=== PATIENT | female | born 2000 | race Two or more races ===

== ENCOUNTER 2021-07-28 08:23 | Emergency (ER) | payer SELFPAY ==
[~2021-07-28] VITALS: Ht 157.5 cm; Wt 87.2 kg
--- NOTE | 2021-07-28 09:34 | PHYS DOC ---
Past Medical History Past Medical History: No Pertinent History Past Surgical History: No Surgical History Smoking Status: Never Smoker Alcohol Use: None Drug Use: None General Adult EDM: Chief Complaint: ABDOMINAL PAIN HPI: HPI: Patient is a 21 year old female who present to ER for evaluation of abdominal p ain with nausea since yesterday. Patient said the pain is everywhere. Patient denies any cough or fever, no vaginal bleeding or discharge. Patient denies any urinary symptoms. Patient is on control medication, does not think that she is . Patient denies any chest pain, no trouble breathing. Patient described the pain as aching in nature, nothing make it worse or better. Patient never had this problem before Review of Systems: Review of Systems: Constitutional: Denies fever or chills. [] Eyes: Denies change in visual acuity. [] HENT: Denies nasal congestion or sore throat. [] Respiratory: Denies cough or shortness of breath. [] Cardiovascular: Denies chest pain or edema. [] GI: Positive for abdominal pain with nausea, no vomiting, no diarrhea : Denies dysuria. [] Musculoskeletal: Denies back pain or joint pain. [] Integument: Denies rash. [] Neurologic: Denies headache, focal weakness or sensory changes. [] Endocrine: Denies polyuria or polydipsia. [] Lymphatic: Denies swollen glands. [] Psychiatric: Denies depression or anxiety. [] Heart Score: C/O Chest Pain: N/A Risk Factors: Risk Factors: DM, Current or recent (<one month) smoker, HTN, HLP, family history of CAD, obesity. Risk Scores: Score 0 - 3: 2.5% MACE over next 6 weeks - Discharge Home Score 4 - 6: 20.3% MACE over next 6 weeks - Admit for Clinical Observation Score 7 - 10: 72.7% MACE over next 6 weeks - Early Invasive Strategies Allergies: Allergies: Allergies Coded Allergies Type Severity Reaction Last Updated Verified No Known Drug Allergies 10/18/14 No Physical Exam: PE: Constitutional: Well developed, well nourished, no acute distress, non-toxic appearance. [] HENT: Normocephalic, atraumatic, bilateral external ears normal, oropharynx moist, no oral exudates, nose normal. [] Eyes: PERRLA, EOMI, conjunctiva normal, no discharge. [] Neck: Normal range of motion, no tenderness, supple, no stridor. [] Cardiovascular:Heart rate regular rhythm, no murmur [] Lungs & Thorax: Bilateral breath sounds clear to auscultation [] Abdomen: Bowel sounds normal, soft, right side upper tender to palpation ,no masses, no pulsatile masses. There is no tenderness to palpation in suprapubic area or lower abdominal area. Skin: Warm, dry, no erythema, no rash. [] Back: No tenderness, no CVA tenderness. [] Extremities: No tenderness, no cyanosis, no clubbing, ROM intact, no edema. [] Neurologic: Alert and oriented X 3, normal motor function, normal sensory function, no focal deficits noted. [] Psychologic: Affect normal, judgement normal, mood normal. [] Current Patient Data: Labs: Laboratory Tests Test 07/28/21 09:14 07/28/21 09:16 07/28/21 09:21 White Blood Count 10.1 x10^3/uL Red Blood Count 4.54 x10^6/uL Hemoglobin 14.0 g/dL Hematocrit 41.2 % Mean Corpuscular Volume 91 fL Mean Corpuscular Hemoglobin 31 pg Mean Corpuscular Hemoglobin Concent 34 g/dL Red Cell Distribution Width 12.9 % Platelet Count 364 x10^3/uL Neutrophils (%) (Auto) 69 % Lymphocytes (%) (Auto) 24 % Monocytes (%) (Auto) 6 % Eosinophils (%) (Auto) 1 % Basophils (%) (Auto) 0 % Neutrophils # (Auto) 6.9 x10^3/uL Lymphocytes # (Auto) 2.4 x10^3/uL Monocytes # (Auto) 0.6 x10^3/uL Eosinophils # (Auto) 0.1 x10^3/uL Basophils # (Auto) 0.0 x10^3/uL Maternal Serum HCG Beta Subunit 64 mIU/mL Sodium Level 137 mmol/L Potassium Level 3.9 mmol/L Chloride Level 102 mmol/L Carbon Dioxide Level 25 mmol/L Anion Gap 10 Blood Urea Nitrogen 9 mg/dL Creatinine 0.7 mg/dL Estimated GFR (Cockcroft-Gault) 106.7 BUN/Creatinine Ratio 13 Glucose Level 107 mg/dL Calcium Level 8.7 mg/dL Total Bilirubin 0.4 mg/dL Aspartate Amino Transf (AST/SGOT) 13 U/L Alanine Aminotransferase (ALT/SGPT) 20 U/L Alkaline Phosphatase 103 U/L Total Protein 8.0 g/dL Albumin 3.9 g/dL Albumin/Globulin Ratio 1.0 Lipase 137 U/L Urine Collection Type Unknown Urine Color Yellow Urine Clarity Clear Urine pH 6.0 Urine Specific [place] 1.020 Urine Protein Negative mg/dL Urine Glucose (UA) Negative mg/dL Urine Ketones (Stick) Negative mg/dL Urine Blood Negative Urine Nitrite Negative Urine Bilirubin Negative Urine Urobilinogen Dipstick 0.2 mg/dL Urine Leukocyte Esterase Negative Urine RBC 0 /HPF Urine WBC 1-4 /HPF Urine Squamous Epithelial Cells Mod /LPF Urine Bacteria 0 /HPF Bedside Urine HCG, Qualitative Hcg positive Laboratory Tests Test 07/28/21 09:21 POC Urine HCG, Qualitative Hcg positive (Negative) EKG: EKG: [] Radiology/Procedures: Radiology/Procedures: [][facility] [address] [place] [address] IMAGING REPORT Signed PATIENT: EDUARDO TERAN AACCOUNT: [id number] : 2000 LOCATION: ER AGE: 21 SEX: F EXAM STATUS: REG ER ORD. PHYSICIAN: NEELAM TYLER DO REASON: , PELVIC PAIN, ABDOMINAL PAIN PROCEDURE: OB TRANSVAG EXAM: Abdomen sonogram; obstetrics sonogram. HISTORY: Pain. TECHNIQUE: Sonographic imaging of the abdomen and transabdominal and transvaginal sonographic imaging of a gravid uterus was performed. COMPARISON: None. FINDINGS: The liver is normal in size. There is hepatic steatosis. No focal hepatic lesion is seen. The gallbladder is unremarkable. The common bile duct is normal in caliber. The right kidney is unremarkable. The pancreas and aorta are obscured due to bowel gas. The inferior vena cava is patent. The uterus measures 7.3 x 5.0 x 3.5 cm. The uterus is retroverted. The endometrial stripe is thickened to 2.0 cm. No intrauterine gestational sac is seen. The ovaries are normal in size and demonstrate normal blood flow. There is a small amount of pelvic free fluid. There is a 1.8 cm right corpus luteum cyst. IMPRESSION: 1. No intrauterine gestational sac. Note is made that this is not expected at the reported beta-hCG level of 64. Correlation with serial beta hCG levels to c onfirm appropriate increase and short-term sonographic imaging is recommended to confirm viability and exclude a chemical or ectopic . 2. Hepatic steatosis. 3. Thickened endometrium and 2.0 cm right corpus luteum cyst. 4. Small amount of nonspecific pelvic free fluid. Electronically signed by: Xuan Iglesias MD (07/28/2021 10:40 AM) [id number] DICTATED and SIGNED BY: XUAN IGLESIAS MD DATE: 07/28/21 [id number] 0 Course & Med Decision Making: Course & Med Decision Making Pertinent Labs and Imaging studies reviewed. (See chart for details) Patient is a 21-year-old female who present to ER due to abdominal pain, examination showed that she is tender to palpation in the right upper quadrant, ultrasound of her abdomen showed fatty liver, no evidence of gallstones. Patient also found to be despite she is on control medication. Her hCG level is only 64. Pelvic ultrasound did not show any evidence of an IUP, no large amount of free fluid in the pelvic area. There is no tenderness to palpation in the pelvic area. However patient will need to follow-up with her doctor in 2 days, 48 hours to have her hCG level rechecked to make sure she does not have an ectopic . Patient is amenable to plan of care. Her pain might be from the fatty liver that found on ultrasound today. It is less likely that she has ectopic because she does not have any vaginal bleeding.. Dragon Disclaimer: Dragstevo Disclaimer: This electronic medical record was generated, in whole or in part, using a voice recognition dictation system. Departure Departure Impression: Primary Impression: Abdominal pain Additional Impression: Disposition: 01 HOME / SELF CARE / HOMELESS Condition: STABLE Referrals: UNKNOWN PCP NAME (PCP) NILAY LUCIO MD Please call this [employer] [facility] doctor for follow up in 48 hours, please have your HCG level rechecked in 48 hours. Patient Instructions: Abdominal Pain, Abdominal Pain During Additional Instructions: Thank you for visiting our Emergency Department. We appreciate you trusting us with your care. If any additional problems come up don't hesitate to return to visit us. Please follow up with your primary care provider so they can plan additional care if needed and know about the problem that you had. If symptoms worsen come back to the Emergency Department. Any concerning symptoms that start such as chest pain, shortness of air, weakness or numbness on one side of the body, running high fevers or any other concerning symptoms return to the ER. NEELAM TYLER DO Jul 28, 2021 09:34
[2021-07-28 09:47] LABS: BASO % 0 % (0-3); EOS # 0.1 x10^3/uL (0.0-0.7); EOS % 1 % (0-3); HEMATOCRIT 41.2 % (36.0-47.0); LYMPH # 2.4 x10^3/uL (1.0-4.8); LYMPH % 24 % (24-48); MEAN CORPUSCULAR HEMOGLOBIN 31 pg (25-35); MEAN CORPUSCULAR HGB CONC 34 g/dL (31-37); MEAN CORPUSCULAR VOLUME 91 fL (79-100); MONO # 0.6 x10^3/uL (0.0-1.1); MONO % 6 % (0-9); NEUT # 6.9 x10^3/uL (1.8-7.7); NEUT % 69 % (31-73); PLATELET COUNT 364 x10^3/uL (140-400); RED BLOOD COUNT 4.54 x10^6/uL (3.50-5.40); RED CELL DISTRIBUTION WIDTH 12.9 % (11.5-14.5); WHITE BLOOD COUNT 10.1 x10^3/uL (4.0-11.0)
[2021-07-28 09:57] LABS: CALCIUM 8.7 mg/dL (8.5-10.1); CREATININE 0.7 mg/dL (0.6-1.0); GFR 106.7; POTASSIUM 3.9 mmol/L (3.5-5.1)
[2021-07-28 10:04] LABS: ALBUMIN 3.9 g/dL (3.4-5.0); TOTAL BILIRUBIN 0.4 mg/dL (0.2-1.0)
[2021-07-28 10:06] LABS: BILIRUBIN,URINE NEGATIVE (NEG); CLARITY,URINE CLEAR; COLOR,URINE YELLOW; NITRITE,URINE NEGATIVE (NEG); PROTEIN,URINE NEGATIVE (NEG-TRACE); UROBILINOGEN,URINE 0.2 mg/dL (0.2 mg/dL)
--- NOTE | 2021-07-28 10:42 | RAD ---
EXAM: Abdomen sonogram; obstetrics sonogram. HISTORY: Pain. TECHNIQUE: Sonographic imaging of the abdomen and transabdominal and transvaginal sonographic imaging of a gravid uterus was performed. COMPARISON: None. FINDINGS: The liver is normal in size. There is hepatic steatosis. No focal hepatic lesion is seen. T he gallbladder is unremarkable. The common bile duct is normal in caliber. The right kidney is unrema rkable. The pancreas and aorta are obscured due to bowel gas. The inferior vena cava is patent. The uterus measures 7.3 x 5.0 x 3.5 cm. The uterus is retroverted. The endometrial stripe is thickene d to 2.0 cm. No intrauterine gestational sac is seen. The ovaries are normal in size and demonstrate normal blood flow. There is a small amount of pelvic free fluid. There is a 1.8 cm right corpus luteu m cyst. IMPRESSION: 1. No intrauterine gestational sac. Note is made that this is not expected at the reported beta-hCG l evel of 64. Correlation with serial beta hCG levels to confirm appropriate increase and short-term so nographic imaging is recommended to confirm viability and exclude a chemical or ectopic pre gnancy. 2. Hepatic steatosis. 3. Thickened endometrium and 2.0 cm right corpus luteum cyst. 4. Small amount of nonspecific pelvic free fluid. Electronically signed by: Xuan Almazan MD (07/28/2021 10:40 AM) [id number]
[2021-07-28 10:47] LABS: BACTERIA,URINE 0 /HPF (0-FEW); RBC,URINE 0 /HPF (0-2)
[2021-07-28 11:45] VITALS: BP 123/87
== END 2021-07-28 12:05 | disposition home or self-care (01) ==
LOC: ER 08:23
DX: O26.891 Other specified pregnancy related conditions, first trimester (principal); R10.11 Right upper quadrant pain; R11.0 Nausea; Z3A.00 Weeks of gestation of pregnancy not specified
CPT/HCPCS: 36415; 76705; 76817; 80053; 81001; 81025; 83690; 84702; 85025; 99285

== ENCOUNTER 2022-02-24 13:57 | Observation (INO) | payer SELFPAY ==
[2022-02-24 15:49] LABS: BACTERIA,URINE FEW /HPF (0-FEW); RBC,URINE 0 /HPF (0-2); WBC,URINE 0 /HPF (0-4)
== END 2022-02-24 16:24 | disposition home or self-care (01) ==
LOC: 3 SO LND 13:57
PROVIDERS: ADMIT Obstetrics & Gynecology; ATTEND Obstetrics & Gynecology
DX: O36.8130 Decreased fetal movements, third trimester, not applicable or unspecified (principal); O62.9 Abnormality of forces of labor, unspecified; O26.893 Other specified pregnancy related conditions, third trimester; R10.9 Unspecified abdominal pain; Z3A.35 35 weeks gestation of pregnancy
CPT/HCPCS: 59025; 81001; G0378; G0379

== ENCOUNTER 2022-03-07 17:46 | Observation (INO) | payer SELFPAY ==
[2022-03-07] MEDS ORDERED: IV RINGERS,LACTATED 1000ML 1,000 ML IV SCH (18:30)
[2022-03-07 18:49] LABS: AMNIO PT NEGATIVE
== END 2022-03-07 20:20 | disposition home or self-care (01) ==
LOC: 3 SO LND 17:46
PROVIDERS: ADMIT Registered Nurse; ATTEND Registered Nurse
DX: O42.92 Full-term premature rupture of membranes, unspecified as to length of time between rupture and onset of labor (principal); O62.9 Abnormality of forces of labor, unspecified; Z3A.37 37 weeks gestation of pregnancy
CPT/HCPCS: 36415; 59025; 84112; G0378; G0379